=== PATIENT | female | born 1995 | race Caucasian/White ===

== ENCOUNTER 2018-10-06 10:17 | Inpatient (IN) ==
[2018-10-06] MEDS ORDERED: Ondansetron 4 MG/2 ML VIAL IVP PRN (11:33)
[2018-10-06] MEDS ORDERED: Famotidine 20 MG/2 ML VIAL IVP PRN (11:33)
[2018-10-06] MEDS ORDERED: Metoclopramide 10 MG/2 ML VIAL IVP PRN (11:33)
[2018-10-06] MEDS ORDERED: Naloxone 0.4 MG/ML INJ IVP PRN (11:33)
[2018-10-06] MEDS ORDERED: Oxytocin 20 units/ LR 1000 mL 20 UNIT/1,000 ML BAG IVC SCH (11:45)
[2018-10-06] MEDS ORDERED: Ringers Solution, Lactated 1,000 ML IVC SCH (11:45)
--- NOTE | 2018-10-06 11:52 | OB/GYN History & Physical ---
Date of Encounter: 10/06/18 Time of Encounter: 11:50 Assessment and Plan (1) Hypertension affecting in third trimester Current visit: Yes Status: Acute Monitor frequent blood pressures Treat with IV medication when needed Begin induction per Dr. Slater orders. (2) 38 weeks gestation of Current visit: Yes Status: Acute Admit at 38w6d for induction of labor due to elevate blood pressure and GDM Induction of labor with Cytotec, consider further augmentation strategies 4 hrs post Cytotec May have epidural or IV pain medication when Anticipate (3) NST (non-stress test) reactive Current visit: Yes Status: Acute FHR 140 bpm, moderate variability, +15x15 accels, no decels. (4) Gestational diabetes mellitus (GDM) affecting Current visit: Yes Status: Acute Diet-controlled GDM. BS on admission 106. Collaborative care with Dr. Slater History of Present Illness Chief complaint: Elevated Blood pressure, sent from [facility] HPI: Ms. Pina is a 23 year old female at 38w6d who arrives today after an appointment with [facility] this morning. Her blood pressure has been elevated the last several weeks in the office. Today her BP was elevated again at her appointment with [facility] so she was instructed to come to L&D for further evaluation. Dr. Slater was notified and made the decision to move her induction up due to her continued BP issues along with being GDM. Patient endorses positive movement, denies bleeding and leakage of fluid. Blood type A+ GBS negative HIV negative T. Pall negative Rubella Immune Varicella Immune Past Med Surg Social Fam HX - Past Medical History Source: patient Medical history: migraine Psychiatric history: no psych history - Past Surgical History Surgical History: other Additional surgical history: [place] teeth removed - Social History Smoking Status: Smoker, status unknown Smokeless Tobacco Status: No Alcohol use: none Drug use: none Current living situation: Home - Independent Activity Level: Independent ambulation Recent Out of Country Travel Within the Last 8 Weeks: No Exposure or Possible Exposure to Illness During Travel: No - Family History Father Hx Family Cardiac Disorders: Yes (CABG x 3) Hx Family Endocrine Disorder: Yes (DM) Obstetrical History - Pregnancies : 1 Para: 0 Term: 0 : 0 Ab's: 0 Livin Medications and Allergies Ferrous Sulfate [Iron] 325 mg PO BID 10/06/18 [History] Pnv Plus Multivit Tab 1 tab PO DAILY 10/06/18 [History] Allergy/AdvReac Type Severity Reaction Status Date / Time Latex, Natural Rubber Allergy Hives Verified 10/06/18 11:15 Review of System OB - Constitutional Constitutional ROS IM: as per HPI Exam - Constitutional Constitutional: well developed, well nourished, no acute distress - Neck Neck exam: full ROM, normal inspection - Lungs Respiratory exam: CTAB - Cardiovascular Cardiovascular exam: RRR, +S1, +S2 - Breasts Breast: bilateral: normal - Abdomen Abdomen: Present: bowel sounds normal, gravid, non tender - Extremities Extremities exam: full ROM, normal capillary refill, normal inspection Deep Tendon Reflex Grade: 1+ Diminished - Vulva Vulva: bilateral: normal - Vagina Vagina: Present: normal moisture - Cervix Dilation: 3 (per RN exam) Effacement: 70 Station: -2 - Uterus Uterus exam: Present: normal size - Anus/Rectum Anus/Rectum: Present: normal perianal skin Results Result Diagrams: 10/06/18 12:02 All other labs normal. - VTE Reasons for not Prescribing Prophylaxis: Treatment not Indicated - Low risk for VTE
[2018-10-06] MEDS ORDERED: miSOPROStol 25 MCG TABLET PO ONE (12:00)
[2018-10-06 12:41] LABS: Basophils % 0.3 %; Eosinophils # 0.1 K/mcL (0.0-0.6); Eosinophils % 0.6 %; Hemoglobin 12.1 g/dL (11.5-15.4); Immature Granulocytes % 0.7 % (0-4); Lymphocytes # 1.8 K/mcL (0.6-4.6); Lymphocytes % 16.1 %; Mean Corpuscular HGB Conc 31.8 g/dL (31.6-35.5); Mean Corpuscular Hemoglobin 28.7 pg (28.0-33.3); Mean Corpuscular Volume 90.3 fL (83.0-100.0); Mean Platelet Volume 12.3 fL (9.4-12.4); Monocytes # 0.7 K/mcL (0.0-1.3); Monocytes % 6.2 %; Neutrophils # 8.6 K/mcL (1.6-8.9); Platelet Count 185 K/mcL (140-400); Red Blood Count 4.21 M/mcL (3.82-4.97); Red Cell Distribution Width 13.6 % (11.5-14.5); Segmented Neutrophils % 76.1 %
[2018-10-06 16:00] LABS: Alanine Aminotransferase 9 Units/L (7-52); Aspartate Amino Transferase 16 Units/L (13-39); BUN/Creatinine Ratio 19 (6-26); Blood Urea Nitrogen 10 mg/dL (6-20); Lactate Dehydrogenase 161 Units/L (140-271); Uric Acid 5.1 mg/dL (2.3-7.6); eGFR For Non-African Americans > 60 (> 60)
--- NOTE | 2018-10-06 16:03 | OB Labor Progress Note ---
Date of Encounter: 10/06/18 Time of Encounter: 16:01 Labor Progress Note - Subjective Subjective: Patient coping well with contractions, SO at bedside for support. She is now requesting pain medication - Vital Signs Vital Signs: WNL, Afebrile - Cervix Cervix: 5/90/-1 - Heart Tones Heart Tones: FHR 135 bpm, moderate variability, +15x15 accels, no decels. - [place]: Irregular contractions. - Interventions Interventions: SVE SROM, small amount clear fluid at approx 1440 Will begin Pitocin augmentation 4 hrs post Cytotec dose. - Plan Physician notified: Yes Physician notified details: Dr. Slater aware of SROM Plan: Pitocin augmentation 4 hrs post Cytotec dose May have IV pain medication or epidural when needed Anticipate
[2018-10-06] MEDS: *HR* Nalbuphine 10 MG/ML AMPUL IVP PRN ×2 (16:15→18:17)
--- NOTE | 2018-10-06 16:45 | Anesthesia Evaluation PreOp ---
Date of Encounter: 10/06/18 Time of Encounter: 16:43 - Past History Planned Operation: compa Cardiac History: HTN (PIH) Pulmonary History: Denies Any Significant HX [employer] History: Denies Any Significant HX Other Medical History: Diabetes Type II (gestational) Anesthesia History: No Prior Anesthetic Complications, Past Anesthesia (wisdom teeth, no family h/o anesthetic complications) : Yes (38w6d, ) Alcohol Use: none Drug use: none Medications and Allergies Ferrous Sulfate [Iron] 325 mg PO BID 10/06/18 [History] Pnv Plus Multivit Tab 1 tab PO DAILY 10/06/18 [History] Allergy/AdvReac Type Severity Reaction Status Date / Time Latex, Natural Rubber Allergy Hives Verified 10/06/18 11:15 - Meds/Allergy Pre-op Review Medications Reviewed: Yes Allergies Reviewed: Yes Beta Blockers on Current Med List: No Anesthesia Results - Labs 10/06/18 12:02 10/06/18 12:02 Anesthesia Exam O2 Sat Height 1.6 m Weight 80.2 kg Height: 63 Weight: 176 - HEENT Pupil (Motor): Pupils equal Mallampati: II Teeth: Normal Oral Opening: Greater than 3 - [employer] LOC: Oriented [employer] Motor: Normal RUE, Normal LUE, Normal RLE, Normal LLE, Normal Face [employer] Sensory: Normal: RUE, LUE, RLE, LLE, Face - Cardiac Rhythm: Regular Murmur: None JVD: No Carotid Bruit: No - Pulmonary Breath Sounds: bilateral Clear Respiratory Effort: Symmetrical Anesthesia Assess/Plan ASA Score: 3 (Preeclampsia, gestational DM) Level of consciousness: Cooperative Anesthetic Plan: Epidural Monitoring Plan: Standard Monitors
[2018-10-06] MEDS ORDERED: *HR* Promethazine 25 MG/ML VIAL IVP PRN (18:06)
[2018-10-06] MEDS ORDERED: *HR* FentaNYL (PF) 100 MCG/2 ML VIAL ONE (19:43)
[2018-10-06] MEDS ORDERED: *HR* Ropivacaine/PF 0.2% 20 ML VIAL ONE (19:44)
[2018-10-06] MEDS ORDERED: Lidocaine -MPF 1% 5 ML AMPUL ONE (19:44)
[2018-10-06] MEDS ORDERED: Epidural Premix (fent/bupiv) 110 ML EP ONE (20:08)
[2018-10-06] MEDS ORDERED: EPHEDrine 50 MG/ML VIAL IVP PRN (20:27)
[2018-10-06] MEDS ORDERED: *HR* Ropivacaine/PF 0.2% 20 ML VIAL EP ONE (20:27)
[2018-10-06] MEDS ORDERED: *HR* FentaNYL (PF) 100 MCG/2 ML VIAL EP ONE (20:27)
--- NOTE | 2018-10-06 20:27 | Anesthesia Procedures ---
Addendum entered and electronically signed by Imer Jaquez CRNA 10/07/18 15:15: Delivery time [id number] Original Note: Date of Encounter: 10/06/18 Time of Encounter: 20:25 Procedures: Anesthesia - Epidural/Spinal Patient ID/Chart reviewed: Yes Patient examined: Yes OB Eval: Contractions: Non-stressed pattern Consent Obtained: Yes Supplemental Oxygen: None/Room Air Site Prep: Aseptic Technique Patient position: upright Local Anesthetic: Lidocaine 1% Amount of Local Anesthetic used: 3 Touhy Needle Gauge: 18 Touhy Needle Depth (cm): 6 Catheter Depth at Skin (cm): 12 Test Dose (1.5% Lido + Epi): Volume given (mls): 3 Test Dose Result: Negative Loading Dose: Fentanyl (mcg): 100 Loading Dose: Other: 5cc 0.2% ropi, 2cc nss Loading Dose Administered: Thru Touhy Needle Infusion Med: 0.125% Bupivacaine w/ 2 mcg/ml Fentanyl Infusion Rate (mls/hr): [address]: Tegaderm Interspace Used: L3-L4 Loss of Resistance (WARD): Yes Blood: No CSF: No Paresthesia: No
[2018-10-06] MEDS ORDERED: Epidural Premix (fent/bupiv) 110 ML EP SCH (20:30)
[2018-10-07 04:54] LABS: Protein/Creatinine Ratio,Urine 0.88 mg/mg (0.00-0.20)
--- NOTE | 2018-10-07 07:22 | OB/GYN Procedure Note ---
Delivery - Delivery Date: 10/07/18 Provider: Jordan Slater Intrapartum events: none Delivery induction: none Delivery augmentation: pitocin Delivery monitor: external FHT, external uterine Anesthesia: epidural Quantitated Blood Loss: 400 - Infant (s) A Infant Delivery Date: 10/07/18 Delivery Time: 06:42 Presentation: vertex Position: OA Route of delivery: Gender: Male Viability: Viable Pounds: 7 Ounces: 11 Weight Gram: 3495 kg at 1 minute: 8 at 5 mins: 9 Shoulder Dystocia: not encountered Specimens collected: cord blood Placenta: spontaneous Cord: nuchal cord, nuchal reduced - Repair Episiotomy: none Laceration Description: Perineal - 1st Degree, Labial (1st degree bilateral) - Complications Delivery complications: none - Disposition Mom disposition: stable in LDR disposition: stable in LDR - Comments Comments: Patient progressed to complete and on the perineum. She delivered a live male weighing 7 lbs. 11 oz. from occiput anterior position. Nuchal cord 1 was loose and was relieved at delivery. Apgars were 8 and 9. Placenta delivered spontaneously intact. Patient had bilateral labial lacerations and a perineal laceration. Estimated blood loss was 400 mL.
--- NOTE | 2018-10-07 08:40 | Event Note ---
Date of Encounter: 10/07/18 Time of Encounter: 08:30 Called to LDR patient had passed a large blood clot and feeling lightheaded when she set up to use the bed owen. RN reports FF but 1/U and displaced to the right. Uterus was explored and multiple blood clots were expressed. FF at U/1 and midline following the exploration. Dr. Chavez then called to bedside to evaluate patient. Dr. Chavez also explored the uterus and was able to remove and small piece that appeared to be placental membranes. FF U/1 with scan bleeding following the exam. CBC ordered for 12:00. Patient denies any pain at this time. Discussed POC with patient and significant other no questions or concerns verbalized at this time.
[2018-10-07] MEDS ORDERED: Measles/Mumps/Rubella Vacc 0.5 ML VIAL SQ PRN (11:07)
[2018-10-07] MEDS ORDERED: NON-FORMULARY MEDICATION 1 EACH EACH (Pnv Prenatal Plus Multivit Tab 1 TAB) PO SCH (11:07)
[2018-10-07] MEDS ORDERED: Oxytocin 20 units/ LR 1000 mL 20 UNIT/1,000 ML BAG IVC SCH (11:07)
[2018-10-07 14:34] LABS: Basophils % 0.1 %; Hematocrit 24.2 % (35.3-44.9); Immature Granulocytes % 0.5 % (0-4); Lymphocytes % 5.9 %; Mean Corpuscular HGB Conc 32.6 g/dL (31.6-35.5); Mean Corpuscular Hemoglobin 29.9 pg (28.0-33.3); Mean Corpuscular Volume 91.7 fL (83.0-100.0); Mean Platelet Volume 11.5 fL (9.4-12.4); Monocytes # 0.7 K/mcL (0.0-1.3); Platelet Count 141 K/mcL (140-400); Red Blood Count 2.64 M/mcL (3.82-4.97); Red Cell Distribution Width 13.9 % (11.5-14.5); Segmented Neutrophils % 89.5 %
[2018-10-07 14:35] LABS: Hemoglobin 7.9 g/dL (11.5-15.4); Neutrophils # 15.7 K/mcL (1.6-8.9)
[2018-10-08] MEDS: Acetaminophen 325 MG TABLET PO PRN ×3 (01:08→20:23)
[2018-10-08 07:28] LABS: Basophils % 0.2 %; Eosinophils # 0.1 K/mcL (0.0-0.6); Eosinophils % 0.9 %; Hematocrit 19.9 % (35.3-44.9); Hemoglobin 6.4 g/dL (11.5-15.4); Immature Granulocytes % 1.2 % (0-4); Lymphocytes # 2.8 K/mcL (0.6-4.6); Lymphocytes % 19.1 %; Mean Corpuscular HGB Conc 32.2 g/dL (31.6-35.5); Mean Corpuscular Hemoglobin 29.6 pg (28.0-33.3); Mean Corpuscular Volume 92.1 fL (83.0-100.0); Mean Platelet Volume 11.5 fL (9.4-12.4); Monocytes % 6.8 %; Neutrophils # 10.6 K/mcL (1.6-8.9); Platelet Count 149 K/mcL (140-400); Red Blood Count 2.16 M/mcL (3.82-4.97); Red Cell Distribution Width 14.4 % (11.5-14.5); Segmented Neutrophils % 71.8 %
--- NOTE | 2018-10-08 09:05 | OB/GYN Progress Note ---
Date of Encounter: 10/08/18 Time of Encounter: 09:02 - Assessment and Plan (1) Gestational diabetes mellitus (GDM) affecting Current Visit: Yes Status: Acute Diet-controlled GDM. BS on admission 106. Collaborative care with Dr. Slater (2) Status post vaginal delivery Current Visit: Yes Status: Acute Patient very tired today but meeting day one milestones. Anticipate discharge home tomorrow if she is stable after receiving blood. (3) anemia Current Visit: Yes Status: Acute Admission Hgb 12.1, this morning result is 6.4. Denies dizziness with ambulation but is very pale and feeling tired. Spoke with Dr. Slater regarding plan of care. Will offer blood to patient. Patient agreeable to being transfused today, 2 units PRBC's ordered Recheck Hgb 6 hrs after second unit infused. Anticipate discharge home tomorrow if patient is feeling better. (4) Breast feeding status of mother Current Visit: Yes Status: Acute support as needed. (5) First degree perineal laceration during delivery Current Visit: Yes Status: Acute Ice packs to perineum as needed. Motrin for pain. Subjective - Subjective Principal diagnosis: Status post vaginal delivery Interval history: Patient feeling very tired today. Notified of Hgb and discussed transfusion with patient. She is agreeable to receive blood today. She is tolerating a regular diet, urinating without difficulty and her pain is controlled. Moderate lochia rubra noted on pad. Will reassess CBC 6 hrs post second unit of blood and anticipate discharge tomorrow if patient is feeling well. Plan of care discussed with Dr. Slater. Note from Katherine Yu CNM on 10/07/18 Called to LDR patient had passed a large blood clot and feeling lightheaded when she set up to use the bed owen. RN reports FF but 1/U and displaced to the right. Uterus was explored and multiple blood clots were expressed. FF at U/1 and midline following the exploration. Dr. Chavez then called to bedside to evaluate patient. Dr. Chavez also explored the uterus and was able to remove and small piece that appeared to be placental membranes. FF U/1 with scan bleeding following the exam. CBC ordered for 12:00. Patient denies any pain at this time. Discussed POC with patient and significant other no questions or concerns verbalized at this time. - Delivery Date: 10/07/18 Provider: Jordan Slater Intrapartum events: none Delivery induction: none Delivery augmentation: pitocin Delivery monitor: external FHT, external uterine Anesthesia: epidural Quantitated Blood Loss: 400 - Infant (s) A Infant Delivery Date: 10/07/18 Delivery Time: 06:42 Presentation: vertex Position: OA Route of delivery: Gender: Male Viability: Viable Pounds: 7 Ounces: 11 Weight Gram: 3495 kg at 1 minute: 8 at 5 mins: 9 Shoulder Dystocia: not encountered Specimens collected: cord blood Placenta: spontaneous Cord: nuchal cord, nuchal reduced - Repair Episiotomy: none Laceration Description: Perineal - 1st Degree, Labial (1st degree bilateral) - Complications Delivery complications: none - Disposition Mom disposition: stable in LDR [place] disposition: stable in LDR Patient reports: appetite normal, voiding normally, pain well controlled [place]: doing well, nursing well Objective - Latest Vital Signs Latest vital signs: Vital Signs Temp Pulse Pulse Resp BP Pulse Ox 10/08/18 04:40 98 14 106/61 98 10/08/18 02:30 97.7 F 109 14 110/66 97 10/08/18 00:35 98.5 F 112 14 120/75 97 10/07/18 22:50 98.8 F 117 18 115/71 97 10/07/18 20:15 130 18 10/07/18 20:00 98.9 F 130 18 124/73 98 10/07/18 17:47 99.2 F 136 14 128/87 99 10/07/18 15:29 98.5 F 130 14 128/84 97 10/07/18 13:49 99.4 F 120 16 122/82 97 10/07/18 11:58 99.2 F 115 14 120/76 97 10/07/18 10:56 98.3 F 99 16 93/60 99 Intake and Output 10/07/18 10/08/18 10/08/18 23:59 07:59 15:59 Output Total 200 / 200 Balance -200 / -200 Output: Urine 200 / 200 Other: # Voids 1 Weight 76.657 kg Patient Weight 10/08/18 23:59 Weight 76.657 kg - Exam Lungs: bilateral: normal Chest: Normal S1, Normal S2 Extremities: Present: normal Abdomen: Present: normal appearance, soft Uterus: Present: normal, firm Uterus Position: At Umbilicus Comments: Patient denies dizziness with ambulation but does report being very tired. Moderate amount of lochia rubra. - Labs Labs: Laboratory Results - last 24 hr 10/07/18 10/08/18 14:04 07:03 WBC 17.5 H D 14.8 H RBC 2.64 L 2.16 L Hgb 7.9 L D 6.4 L D Hct 24.2 L 19.9 L MCV 91.7 92.1 MCH 29.9 29.6 MCHC 32.6 32.2 RDW 13.9 14.4 Plt Count 141 149 MPV 11.5 11.5 Immature Gran % 0.5 1.2 Seg Neutrophils % 89.5 71.8 Lymphocytes % 5.9 19.1 Monocytes % 4.0 6.8 Eosinophils % 0.0 0.9 Basophils % 0.1 0.2 Neutrophils # 15.7 H 10.6 H Lymphocytes # 1.0 2.8 Monocytes # 0.7 1.0 Eosinophils # 0.0 0.1 Basophils # 0.0 0.0
[2018-10-08] MEDS: Prenatal Vit/FA 1 EACH TABLET PO SCH (09:07)
[2018-10-08] MEDS ORDERED: 0.9 % Sodium Chloride 250 ML ONE ×2 (13:25→16:23)
[2018-10-09 03:22] LABS: Basophils % 0.3 %; Eosinophils # 0.2 K/mcL (0.0-0.6); Eosinophils % 2.1 %; Hematocrit 24.3 % (35.3-44.9); Immature Granulocytes % 2.2 % (0-4); Immature Platelets 4.9 % (1.1-6.1); Lymphocytes # 2.4 K/mcL (0.6-4.6); Lymphocytes % 20.3 %; Mean Corpuscular HGB Conc 32.9 g/dL (31.6-35.5); Mean Corpuscular Hemoglobin 29.6 pg (28.0-33.3); Mean Platelet Volume 11.5 fL (9.4-12.4); Monocytes # 0.7 K/mcL (0.0-1.3); Monocytes % 5.7 %; Platelet Count 150 K/mcL (140-400); Red Cell Distribution Width 14.5 % (11.5-14.5); Segmented Neutrophils % 69.4 %
[2018-10-09] MEDS: Prenatal Vit/FA 1 EACH TABLET PO SCH (08:15)
[2018-10-09 08:25] VITALS: BP 110/73
[2018-10-09] MEDS ORDERED: Benzocaine/Menthol 56 GM AEROSOL SPRAY TP PRN (11:01)
--- NOTE | 2018-10-09 11:29 | Discharge Summary ---
Date of Encounter: 10/09/18 Time of Encounter: 11:27 - Discharge Diagnosis (1) Status post vaginal delivery Priority: Secondary Status: Acute Comments: S/P vaginal delivery day 2 Meeting day 2 milestones Pain is well controlled Ambulating without dizziness Appetite is normal Voiding and passing flatus Lochia is light Discussed safe spacing, planning OCP for contraception Mood is appropriate Healthy male BW 7lb 11oz doing well with Well to discharge to home Follow up in 4 weeks (2) 38 weeks gestation of Priority: Primary Status: Acute Comments: Now Delivered at 38w6d (3) Gestational diabetes mellitus (GDM) affecting Priority: Secondary Status: Acute Comments: Diet controlled GDM Will need GTT in 6 weeks (4) anemia Priority: Secondary Status: Acute Comments: Delivery was complicated by retained placental membrane and bleeding 2 units PRBC were give Hgb today at 8, Hct 24.3 Asymptomatic Will continue ferrous sulfate - Discharge Medications Prescriptions: Docusate [Colace] 100 mg PO BID #30 capsule Ferrous Sulfate 325 mg PO BIDWM #180 tablet Home Medications: Ferrous Sulfate [Iron] 325 mg PO BID 10/06/18 [History] Pnv Plus Multivit Tab 1 tab PO DAILY 10/06/18 [History] Acetaminophen [Tylenol] 650 mg PO Q6HR PRN tablet 10/09/18 [Rx] Benzocaine/Menthol [place] [Dermoplast [place]] 1 appl TP QID PRN aerosol 10/09/18 [Rx] Docusate [Colace] 100 mg PO BID #30 capsule 10/09/18 [Rx] Ferrous Sulfate 325 mg PO BIDWM #180 tablet 10/09/18 [Rx] Ibuprofen [Motrin] 600 mg PO Q6HR PRN #30 tab 10/09/18 [Rx] Vit/FA 1 each PO DAILY tablet 10/09/18 [Rx] Allergies/Adverse Reactions: Allergy/AdvReac Type Severity Reaction Status Date / Time Latex, Natural Rubber Allergy Hives Verified 10/06/18 11:15 Data Procedures and tests throughout hospitalization: Laboratory Tests 10/06/18 10/06/18 10/06/18 12:02 12:02 12:02 WBC 11.3 H RBC 4.21 Hgb 12.1 Hct 38.0 MCV 90.3 MCH 28.7 MCHC 31.8 RDW 13.6 Plt Count 185 MPV 12.3 Immature Gran % 0.7 Seg Neutrophils % 76.1 Lymphocytes % 16.1 Monocytes % 6.2 Eosinophils % 0.6 Basophils % 0.3 Neutrophils # 8.6 Lymphocytes # 1.8 Monocytes # 0.7 Eosinophils # 0.1 Basophils # 0.0 Immature Plt Fraction BUN Creatinine Est GFR ( Amer) Est GFR (Non-Af Amer) BUN/Creatinine Ratio Uric Acid AST ALT Lactate Dehydrogenase Urine Creatinine Protein/Creatinin Ratio Urine Total Protein Urine Opiates Screen TNP Ur Barbiturates Screen TNP Ur Phencyclidine Scrn TNP Ur Amphetamines Screen TNP U Benzodiazepines Scrn TNP Urine Cocaine Screen TNP U Marijuana (THC) Screen TNP Ur Drug Screen Interp TNP Blood Type A POSITIVE Antibody Screen NEGATIVE Crossmatch See Detail 10/06/18 10/07/18 10/07/18 12:02 04:16 14:04 WBC 17.5 H D RBC 2.64 L Hgb 7.9 L D Hct 24.2 L MCV 91.7 MCH 29.9 MCHC 32.6 RDW 13.9 Plt Count 141 MPV 11.5 Immature Gran % 0.5 Seg Neutrophils % 89.5 Lymphocytes % 5.9 Monocytes % 4.0 Eosinophils % 0.0 Basophils % 0.1 Neutrophils # 15.7 H Lymphocytes # 1.0 Monocytes # 0.7 Eosinophils # 0.0 Basophils # 0.0 Immature Plt Fraction BUN 10 Creatinine 0.53 L Est GFR ( Amer) > 60 Est GFR (Non-Af Amer) > 60 BUN/Creatinine Ratio 19 Uric Acid 5.1 AST 16 ALT 9 Lactate Dehydrogenase 161 Urine Creatinine 108 Protein/Creatinin Ratio 0.88 H Urine Total Protein 95 H Urine Opiates Screen Ur Barbiturates Screen Ur Phencyclidine Scrn Ur Amphetamines Screen U Benzodiazepines Scrn Urine Cocaine Screen U Marijuana (THC) Screen Ur Drug Screen Interp Blood Type Antibody Screen Crossmatch 10/08/18 10/09/18 07:03 02:29 WBC 14.8 H 11.6 H RBC 2.16 L 2.70 L Hgb 6.4 L D 8.0 L D Hct 19.9 L 24.3 L MCV 92.1 90.0 MCH 29.6 29.6 MCHC 32.2 32.9 RDW 14.4 14.5 Plt Count 149 150 MPV 11.5 11.5 Immature Gran % 1.2 2.2 Seg Neutrophils % 71.8 69.4 Lymphocytes % 19.1 20.3 Monocytes % 6.8 5.7 Eosinophils % 0.9 2.1 Basophils % 0.2 0.3 Neutrophils # 10.6 H 8.0 Lymphocytes # 2.8 2.4 Monocytes # 1.0 0.7 Eosinophils # 0.1 0.2 Basophils # 0.0 0.0 Immature Plt Fraction 4.9 BUN Creatinine Est GFR ( Amer) Est GFR (Non-Af Amer) BUN/Creatinine Ratio Uric Acid AST ALT Lactate Dehydrogenase Urine Creatinine Protein/Creatinin Ratio Urine Total Protein Urine Opiates Screen Ur Barbiturates Screen Ur Phencyclidine Scrn Ur Amphetamines Screen U Benzodiazepines Scrn Urine Cocaine Screen U Marijuana (THC) Screen Ur Drug Screen Interp Blood Type Antibody Screen Crossmatch Labs on day of discharge: Labs from last 24 hours 10/09/18 10/06/18 02:29 12:02 WBC 11.6 H RBC 2.70 L Hgb 8.0 L D Hct 24.3 L MCV 90.0 MCH 29.6 MCHC 32.9 RDW 14.5 Plt Count 150 MPV 11.5 Immature Gran % 2.2 Seg Neutrophils % 69.4 Lymphocytes % 20.3 Monocytes % 5.7 Eosinophils % 2.1 Basophils % 0.3 Neutrophils # 8.0 Lymphocytes # 2.4 Monocytes # 0.7 Eosinophils # 0.2 Basophils # 0.0 Immature Plt Fraction 4.9 Blood Type A POSITIVE Antibody Screen NEGATIVE Crossmatch See Detail Date of admission: 10/06/18 10:17 Primary care physician: Justyna Velasco CNP Consults: 10/07/18 11:07 Consult to Dock Boss [CONS] Routine Comment: Vaginal delivery, consult needed Discharging clinician: Whit Miller Anticipated date of discharge: 10/09/18 - Patient Status Disposition: Home, Self-Care Condition: Good Functional capacity at discharge: independent ambulation Overall status at discharge: patient is progressing back to baseline - Discharge Instructions Follow Up With: Justyna Velasco CNP [Primary Care Provider] - - Diet and Activity Activity: resume usual activities as tolerated Diet: advance to your usual diet Hospital Course Reason for admission: induction of labor Delivery: Episiotomy: none Laceration: 1st degree (bilateral labial and perineal lacerations) Other procedures: transfusion complications: retained placenta, transfusion (Hemorrhage after retained placental membrane, transfusion with 2 units PRBC) Discharge diagnosis: IUP at term delivered baby: male Hospital course: Patient progressed to complete and on the perineum. She delivered a live male weighing 7 lbs. 11 oz. from occiput anterior position. Nuchal cord 1 was loose and was relieved at delivery. Apgars were 8 and 9. Placenta delivered spontaneously intact. Patient had bilateral labial lacerations and a perineal laceration. Estimated blood loss was 400 mL. Time Attestation: Total time spent providing and/or coordinating discharge services: Time Spent: Greater than 30 minutes Exam - Constitutional Vitals: Temp Pulse Resp BP Pulse Ox 98.1 F 88 16 110/73 97 10/09/18 08:00 10/09/18 08:00 10/09/18 08:00 10/09/18 08:00 10/09/18 08:00 General appearance IM: A&O X 3, pleasant, no acute distress, answers questions appropriately - Respiratory Respiratory exam: Present: CTAB. Absent: rales, rhonchi, wheezes - Cardiovascular Cardiovascular exam IM: Present: RRR, +S1, +S2 - GI/Abdominal GI/Abdominal exam IM: normal bowel sounds, soft, no peritoneal signs - Rectal Rectal exam: deferred - External exam: normal external exam Uterine Tone: Firm Uterus Position: 1 Finger Below Umbilicus - Extremities Exam Extremities exam IM: Present: normal capillary refill, normal inspection, pedal edema. Absent: calf tenderness - Neurological Exam Neurological exam: CN II-XII intact, oriented X3, no focal deficits - Psychiatric Additional comments: Mood is appropriate
== END 2018-10-09 12:45 | disposition home or self-care (01) | DRG 806 ==
LOC: 1NENULAB → OBSVTOIN 10:17 → 1NENUOBS 10-07 10:58
PROVIDERS: ADMIT Registered Nurse; ATTEND Registered Nurse

== ENCOUNTER → 2021-11-26 20:40 | Observation (INO) ==
[2021-11-26 19:04] LABS: Basophils % 0.2 %; Eosinophils % 0.1 %; Hematocrit 37.2 % (35.3-44.9); Hemoglobin 11.9 g/dL (11.5-15.4); Immature Granulocytes % 0.5 % (0-4); Lymphocytes # 0.4 K/mcL (0.6-4.6); Lymphocytes % 2.7 %; Mean Corpuscular Hemoglobin 28.5 pg (28.0-33.3); Mean Corpuscular Volume 89.2 fL (83.0-100.0); Mean Platelet Volume 10.2 fL (9.4-12.4); Monocytes # 0.4 K/mcL (0.0-1.3); Monocytes % 2.8 %; Neutrophils # 13.4 K/mcL (1.6-8.9); Platelet Count 231 K/mcL (140-400); Red Blood Count 4.17 M/mcL (3.82-4.97); Red Cell Distribution Width 13.7 % (11.5-14.5); Segmented Neutrophils % 93.7 %; White Blood Count 14.3 K/mcL (4.3-11.1)
[2021-11-26 19:28] LABS: BUN/Creatinine Ratio 18 (6-26); Blood Urea Nitrogen 10 mg/dL (6-20); Calcium 8.4 mg/dL (8.6-10.3); Carbon Dioxide 21 mEq/L (23-29); Chloride 105 mEq/L (98-107); Glucose 97 mg/dL (70-105); Osmolality,Calculated 277 (280-300); Potassium 3.7 mEq/L (3.5-5.1); Sodium 134 mEq/L (136-145); eGFR For African Americans > 60 (> 60); eGFR For Non-African Americans > 60 (> 60)
[~2021-11-26 20:40] MED LIST: D5% in Lactated Ringers 1,000 ML IVC SCH; Lidocaine -MPF 2% 5 ML VIAL ONE; Ondansetron 4 MG/2 ML VIAL IVP ONE; Ringers Solution, Lactated 1,000 ML IVC ONE; Ringers Solution, Lactated 1,000 ML ONE; Scopolamine Patch 1.5 MG PATCH.TD72 TD ONE
== END | disposition home or self-care (01) ==
LOC: 1NENULAB
PROVIDERS: ADMIT Obstetrics & Gynecology; ATTEND Obstetrics & Gynecology

== ENCOUNTER → 2022-01-21 11:43 | Observation (INO) | END | disposition home or self-care (01) | LOC: 1NENULAB | PROVIDERS: ADMIT Registered Nurse; ATTEND Registered Nurse ==

== ENCOUNTER 2022-02-05 15:57 | Inpatient (IN) ==
[~2022-02-05 15:57] MED LIST changes: +*HR* Nalbuphine 10 MG/ML AMPUL IV PRN; -D5% in Lactated Ringers 1,000 ML IVC SCH; +Famotidine 20 MG/2 ML VIAL IVP PRN; -Lidocaine -MPF 2% 5 ML VIAL ONE; +Metoclopramide 10 MG/2 ML VIAL IVP PRN; +Naloxone 0.4 MG/ML INJ IVP PRN; -Ondansetron 4 MG/2 ML VIAL IVP ONE; +Ondansetron 4 MG/2 ML VIAL IVP PRN; -Ringers Solution, Lactated 1,000 ML IVC ONE; -Ringers Solution, Lactated 1,000 ML ONE; -Scopolamine Patch 1.5 MG PATCH.TD72 TD ONE
[2022-02-05] MEDS ORDERED: EPHEDrine 50 MG/ML VIAL IVP PRN (16:19)
[2022-02-05 16:21] LABS: Basophils % 0.2 %; Eosinophils # 0.1 K/mcL (0.0-0.6); Eosinophils % 0.5 %; Hematocrit 33.3 % (35.3-44.9); Hemoglobin 10.4 g/dL (11.5-15.4); Immature Granulocytes % 0.6 % (0-4); Lymphocytes # 1.7 K/mcL (0.6-4.6); Lymphocytes % 17.4 %; Mean Corpuscular HGB Conc 31.2 g/dL (31.6-35.5); Mean Corpuscular Hemoglobin 26.3 pg (28.0-33.3); Mean Corpuscular Volume 84.3 fL (83.0-100.0); Mean Platelet Volume 11.1 fL (9.4-12.4); Monocytes # 0.5 K/mcL (0.0-1.3); Monocytes % 5.3 %; Neutrophils # 7.4 K/mcL (1.6-8.9); Platelet Count 232 K/mcL (140-400); Red Blood Count 3.95 M/mcL (3.82-4.97); Red Cell Distribution Width 13.8 % (11.5-14.5); White Blood Count 9.7 K/mcL (4.3-11.1)
[2022-02-05 16:26] LABS: Amphetamine Screen,Urine Negative ng/mL (Cutoff=1000); Barbiturate Screen,Urine Negative ng/mL (Cutoff=200); Benzodiazepines Screen,Urine Negative ng/mL (Cutoff=200); Cannabinoid Screen,Urine Negative ng/mL (Cutoff = 50); Cocaine Screen,Urine Negative ng/mL (Cutoff= 300); Opiate Screen,Urine Negative ng/mL (Cutoff=300); Phencyclidine Screen,Urine Negative ng/mL (Cutoff=25)
[2022-02-05] MEDS ORDERED: Epidural Premix (fent/bupiv) 110 ML EP SCH (16:30)
[2022-02-05 16:54] LABS: Influenza A PCR Negative (Negative); Influenza B PCR Negative (Negative); Resp. Syncytial Virus PCR Negative (Negative)
[2022-02-05 17:05] LABS: SARS-CoV-2 by PCR (In House) Negative (Negative)
[2022-02-05 17:24] LABS: Alanine Aminotransferase 11 Units/L (7-52); Aspartate Amino Transferase 15 Units/L (13-39); BUN/Creatinine Ratio 11 (6-26); Blood Urea Nitrogen 6 mg/dL (6-20); Lactate Dehydrogenase 175 Units/L (140-271); eGFR For African Americans > 60 (> 60); eGFR For Non-African Americans > 60 (> 60)
[2022-02-05] MEDS: Ringers Solution, Lactated 1,000 ML IVC SCH (17:24)
[2022-02-05] MEDS: Oxytocin 30 UNIT/503 ML BAG IVC SCH (17:25)
[2022-02-05 19:22] LABS: Creatinine,Urine 84 mg/dL; Protein/Creatinine Ratio,Urine 0.11 mg/mg (0.00-0.20)
[2022-02-06] MEDS: Ringers Solution, Lactated 1,000 ML IVC SCH ×2 (01:53→01:55)
[2022-02-06] MEDS ORDERED: Benzocaine/Menthol 56 GM AEROSOL SPRAY TP PRN (06:38)
[2022-02-06] MEDS ORDERED: Lanolin 7 G OINT...G. TP PRN (06:38)
[2022-02-06] MEDS ORDERED: Ondansetron ODT 4 MG TAB.RAPDIS SL PRN (06:38)
[2022-02-06] MEDS: Acetaminophen 325 MG TABLET PO SCH ×4 (06:57→23:44)
[2022-02-06] MEDS: Ibuprofen 600 MG TABLET PO SCH ×4 (06:58→23:44)
[2022-02-06] MEDS: Oxytocin 30 UNIT/503 ML BAG IVC SCH (06:58)
[2022-02-06] MEDS: Prenatal Vit/FA 1 EACH TABLET PO SCH (10:57)
[2022-02-07 07:40] VITALS: TEMP 98.2; O2SAT 95
[2022-02-07] MEDS: Acetaminophen 325 MG TABLET PO SCH (08:16)
[2022-02-07] MEDS: Prenatal Vit/FA 1 EACH TABLET PO SCH (08:16)
[2022-02-07] MEDS: Ibuprofen 600 MG TABLET PO SCH (08:17)
[2022-02-07 08:51] VITALS: BP 136/91; PULSE 65
== END 2022-02-07 13:23 | disposition home or self-care (01) | DRG 807 ==
LOC: 1NENULAB → 1NENUOBS 02-06 06:39
PROVIDERS: ADMIT Obstetrics & Gynecology; ATTEND Obstetrics & Gynecology